=== PATIENT | female | born 1970 | race Caucasian/White ===

== ENCOUNTER → 2023-06-28 08:30 | Day surgery (SDC) | payer BC, SELFPAY ==
[2023-06-28 08:18] LABS: Glucose - Point of Care 285 mg/dl (70-99)
== END ==
LOC: GI 08:30
PROVIDERS: ATTENDING PHYSICIAN Internal Medicine Gastroenterology
DX: R12 Heartburn (principal); K22.70 Barrett's esophagus without dysplasia; K44.9 Diaphragmatic hernia without obstruction or gangrene; K31.89 Other diseases of stomach and duodenum; K21.00 Gastro-esophageal reflux disease with esophagitis, without bleeding
CPT/HCPCS: 43239; 88305; 82962

== ENCOUNTER 2023-09-05 11:51 | Emergency (ER) | payer BC, SELFPAY ==
[2023-09-05 11:55] VITALS: BP 151/106
[2023-09-05 12:11] LABS: % Basophils 0.5 % (0-2); % Immature Granulocytes 0.3 % (0-0.5); % Lymphocytes 28.6 % (20.5-51.1); % Monocytes 5.9 % (1.7-9.3); % Neutrophils 63.7 % (42.2-75.2); Absolute Eosinophils 0.1 10^3/uL (0-0.7); Absolute Lymphocytes 2.2 10^3/uL (1.2-3.4); Absolute Monocytes 0.5 10^3/uL (0.1-0.6); Absolute Neutrophils 4.9 10^3/uL (1.4-6.5); Hematocrit 41.5 % (37.0-47.0); Hemoglobin 14.2 g/dL (12.0-16.0); Mean Corp Hgb Conc. 34.2 g/dL (33.0-37.0); Mean Corpuscular Hgb 29.5 pg (27.0-31.0); Mean Corpuscular Volume 86.1 fL (81.0-99.0); Mean Platelet Volume 9.3 fL (7.4-10.4); Nucleated Red Blood Cells % 0 %; Platelet Count 356 10^3/uL (130-400); Red Blood Cell Count 4.82 10^6/uL (4.20-5.40); Red Cell Dist. Width 11.9 % (11.5-14.5); White Blood Cell Count 7.7 10^3/uL (4.8-10.8)
[2023-09-05 12:25] LABS: ALT (SGPT) 35 U/L (0-35); AST (SGOT) 24 U/L (14-36); Albumin 4.6 g/dl (3.5-5.0); Alkaline Phosphatase 79 U/L (38-126); Blood Urea Nitrogen 15 mg/dl (7-17); Calcium 10.5 mg/dl (8.4-10.2); Carbon Dioxide 27 mmol/L (22-30); Chloride 101 mmol/L (98-107); Glucose 277 mg/dl (70-99); Potassium 4.1 mmol/L (3.5-5.1); Sodium 137 mmol/L (135-145); Total Bilirubin 2.1 mg/dl (0.2-1.3); Total Protein 7.5 g/dl (6.3-8.2); eGFR > 60.00
--- NOTE | 2023-09-05 16:24 | ED.GENMED ---
History of Present Illness
General
Chief Complaint: Dizziness
Source: patient
Exam Limitations: none
Time Seen by Provider: 09/05/23 16:24
Travel History
Have you had any contact with someone who has COVID-19?: No
Do you have any symptoms of coronavirus? Fever > 100 degrees, chills, cough, shortness of breath, sore throat, loss of taste or smell, muscle aches, or headache?: No
History of Present Illness
History of Present Illness:
52-year-old female insulin-dependent diabetic presents complaining of dizziness that has been happening for about a week. She describes a spinning sensation when she changes position but denies any double vision blurry vision or loss of vision.
She also notes her sugars have been elevated recently. No chest pain or shortness of breath. No recent fever or congestion. No other complaints at this time
Past History
Past History
ED Past Medical History: None
Social History
Tobacco: Non-smoker
Personal:
Living: with family
Phy Exam
Physical Exam
Physical Exam:
General: Well-appearing female no acute respiratory distress
HEENT: Normocephalic pupils equal round reactive to light subtle nystagmus noted with extraocular motions TMs normal
Heart: Regular rate and rhythm
Lungs: Clear no wheeze
Neurologic: Ami-Hallpike increases dizziness to the right. Finger-nose intact [id number] intact normal gait no ataxia the dizziness is fatigable.
Extremities: No cyanosis
Course
Orders/Labs/Results
Orders:
Orders
09/05/23 11:58
Electrocardiogram (*1) Urgent
Reason for Study: Vertigo / Dizzy
EKG- Treatment ONCE
09/05/23 12:03
Complete Blood Count/With Diff Urgent
Comprehensive Metabolic Panel Urgent
Abnormal Lab Results
09/05/23
12:03
Creatinine 0.5 L mg/dL
(0.6-1.0)
Glucose 277 H mg/dl
(70-99)
Calcium 10.5 H mg/dl
(8.4-10.2)
Total Bilirubin 2.1 H mg/dl
(0.2-1.3)
09/05/23 12:03
09/05/23 12:03
Vital Signs
Initial and Last Documented VS:
Initial Vital Signs
Temp Pulse Resp BP Pulse Ox
98.8 F 81 16 151/106 98
09/05/23 11:55 09/05/23 11:55 09/05/23 11:55 09/05/23 11:55 09/05/23 11:55
Last Documented Vital Signs
Temp Pulse Resp BP Pulse Ox
98.8 F 81 16 151/106 98
09/05/23 11:55 09/05/23 11:55 09/05/23 11:55 09/05/23 11:55 09/05/23 11:55
MDM/Problems Addressed
Differential Diagnosis Includes:
Dizziness. Question anemia versus electrolyte abnormality versus vertigo. Objectively no signs consistent with CVA. This is reproducible and fatigable with position change. I was asked to see the patient in triage as she was about to leave. She
had to go home to her son. I do believe this is positional vertigo. They did blood work while waiting and her serum glucose is 277 but otherwise labs look well. She plans on following up with her family doctor regarding the glucose. Will
prescribe meclizine and and recommend vestibular therapy
*Critical Care Note
Total Time (30-74mins, 75-104mins- exclusive of procedures): Not Applicable
Update Note
Update Note:
Patient seen at request of nurse as she was about to leave. Patient did want to leave. Discussed role for imaging however did not order any imaging at this time. She was aware return precautions
ED Attending Note
-
Portions of this chart may have been created with voice recognition software.� Occasional wrong word or��sound alike� substitutions may have occurred due to the inherent limitations of voice recognition software.
Discharge Plan
Departure
Patient Disposition: Home (Routine Discharge)
Date of Disposition: 09/05/23
Time of Disposition: 16:27
Patient with high blood pressure during this ER visit?: No
Discharge Problem:
Vertigo
Instructions: Vertigo (a Type of Dizziness) (DC)
Prescriptions:
New
meclizine 25 mg tablet
25 mg PO TID PRN (Reason: dizziness) Qty: 10 0RF
No Action
vit-iron fum-folic ac [ Vitamin with Minerals] 1 EACH tablet
1 ea PO DAILY
Activity Restrictions/Additional Instructions:
Use meclizine up to 3 times a day if needed for dizziness. Stay hydrated. Please follow-up with your family doctor for further evaluation. Return here for any worsening symptoms. Consider vestibular therapy as a treatment for your vertigo as well
Discharge Date and Time
Print Language: ITALIAN
== END 2023-09-05 17:02 | disposition home or self-care (01) ==
LOC: EMR 11:51
PROVIDERS: Emergency Medicine; EMERGENCY PHYSICIAN Emergency Medicine; FAMILY PHYSICIAN Nurse Practitioner Family
DX: R42 Dizziness and giddiness (principal); E11.9 Type 2 diabetes mellitus without complications; Z79.4 Long term (current) use of insulin
CPT/HCPCS: 99284; 80053; 85025; 93005

== ENCOUNTER → 2024-05-08 14:48 | Outpatient (REF) | payer BC, SELFPAY | LOC: HWWDC 14:48 | PROVIDERS: ATTENDING PHYSICIAN Nurse Practitioner Family | DX: Z12.31 Encounter for screening mammogram for malignant neoplasm of breast (principal) | CPT/HCPCS: 77063; 77067 ==

== ENCOUNTER → 2024-06-08 12:33 | Outpatient (REF) | payer BC, SELFPAY ==
--- NOTE | 2024-06-09 09:11 | PN.DIAED02 ---
Referral
DSME Class Series Code: [id number]
Referred For: Diabetes Self-Management Training, Medical Nutrition Therapy, Self-Blood Glucose Monitoring, Long-Term Complication Instruction, [place]ute Complication Instruction, Continuous Glucose Monitoring, Medication management, Insulin
Instruction, Care Coordination, Disease Management
PHI Release Authorization Form Signed: Yes
Patient Problems:
Current Active Problems
Problem Status Onset
Type 2 diabetes mellitus without complications Unknown
Demographic
(1) Type 2 diabetes mellitus without complications
Status: Chronic Onset Date: Unknown Code(s): E11.9 - Type 2 diabetes mellitus without complications
Patient's primary language-: Chinese
Education: College degree
Occupation: Professional
Hours Worked/Week: 20-40
- Social
Primary Support Person: Self
Primary Care Takers: Self
Living Arrangements: Self & spouse, Family
- Learning Methods
Preferred Method: Reading, Computer, Lecture/audio, Hands-on demonstration, Video, Group discussion
Barriers to Learning: None
Glycemic Control
- Blood Glucose Monitoring Assessment
Date: 06/09/24 (FBS 113 06/09/2024)
Blood glucose monitoring at home: Yes
Monitor Brands: Freestyle
Frequency: 2x per day
Time: fasting, bedtime (FBS 113, BEFORE BED 135)
- Hyperglycemia Assessment
Experiences Hyperglycemia: Yes (FREQUENT THIRST)
Frequency: 1-3x per week
- Hypoglycemia Assessment
Patient carries glucose source: No
Patient experiences hypoglycemia: No
- Blood Glucose Monitoring Results
Source: lab (05/28/2024 FBS 213)
- Hemoglobin A1c
Date: 05/28/24
A1C Percentage (%): 12.8
Medical History of Diabetes
Family Diabetes History: Father, Sibling
Previous Diabetes Education: No
Previous visit with Dietitian: No
Complications/Comorbidity/Specialist: Gastrointestinal disease (GERD: Omeprazole Del Rls 20 mg QD, Braxton's Esoph - no meds), Hypertension (Lisinopril 2.5 mg QD), Hyperlipidemia ([place] 3 Acid Ethyl Esters 1 GM- 2 tablets QD, Atorvastatin 40 mg QD),
Liver disease (no meds), Metabolic (T2D: Mounjaro 2.5 mg QW, Metformin 2000 mg HS, Tresiba 30 u QD HS)
Current Home Medication
- Insulin Management
Patient adjusts own insulin dosages: No
Patient has access to glucagon: No
- Insulin Types
Tresiba
Insulin Injection Site: Abdomen
Administration Type: FlexPen
Measures
- Anthropometrics
Height: 5 ft 3 in
Actual Weight: 154 lb 6.4 oz
- Blood Pressure / Pulse
Blood pressure: 113/77
Pulse: 88
- Diabetes Management
Medical Management for Diabetes: Complete physical exam (05/28/2024), Dental exam (06/09/2024), Dilated eye exam (03/2024), Monofilament testing (05/28/2024)
Self-Care
- Tobacco Usage
Do you now, or have you ever smoked?: Never smoked
- Alcohol & Drugs Usage
Amount/day: Social Occasions
- Meals & Dining
Meals & Dining: Patient skips meals: Yes, Food Intolerance / Allergy: Yes (sulpha allergy), Cultural / Judaism Dietary Needs: No
Primary Food Director Of Marketing Communications: Self
Primary Radiological Equipment Specialist: Self
Dining Out Frequency: 1-3x per week
- Physical Activity
Physical Limitation: No
Patient participates in physical Activity: No
- Self Foot-Care
Foot Problems: None
- Patient-Self Assessment
Diabetes Knowledge: Fair
Feelings About Diabetes: Denial
General Health: Fair
Importance of Health: Extremely
Stress Level: High
Diabetes Interferes With:: Nothing
Barriers to Diabetes Management: Lack of knowledge
Depression Survey Score: 3
- Diabetes Identification
Carries Diabetes Identification: Yes (keeps on ambrocio chain)
Diabetes Identification Information Provided: Yes
Care Plan
- Education Needs
Patient Education Needs: Diabetes disease process, Chronic complications, Acute complications, Medication, Monitoring, Physical activity, Psychosocial Adjustment, Nutritional management, Goal setting & problem solving
Recommended Diabetes Training Program based on assessment: Outpatient Diabetes Education Program
- Plan of Care
Plan of Care:
Met with patient for initial consultation for DSMES program. Reviewed HbA1c meaning, complications, preventive care, monitoring schedule and pre/postprandial glucose goals. Educated on signs and symptoms of hyperglycemia, treat with water and
exercise. Educated on signs and symptoms of hypoglycemia, hypoglycemia protocol, and encouraged member to discuss any hypoglycemia with steam station supervisor. Discuss Mounjaro mechanism of action and side effects. Educated on proper insulin injection
storage and injection technique.
--- NOTE | 2024-06-09 09:58 | PN.DIAED04 ---
Education Record
- Education Record
Class Attended: Other (Initial consultation)
DSME Class Series Code: [id number]
Instructor: Registered Nurse (Laney Chaudhari RN)
Pre-Program Knowledge: Needs review / Assistance
Pre-Test Score (%): 73
Goals
- Goal 1
Being Active: Exercise 15 minutes-3 times per week
Goals To Be Evaluated: Exercise 15 mins-3x/week
- Goal 2
Healthy Eating: Patient will be able to plan a meal, Make better food choices, Follow meal plan, Reduce portion sizes
Goals To Be Evaluated: Be able to plan a meal. Make better food choices. Follow meal plan. Reduce portion sizes
- Goal 3
Monitoring: Check blood sugar 4x daily-b4 breakfast/b4 lunch/b4 dinner/at bedtime, Monitor more often (will begin checking 2 hours post prandial)
Goals To Be Evaluated: Check blood sugar 4x/day. Monitor more often
--- NOTE | 2024-06-10 15:41 | PN.DIAED14 ---
This is to notify you that your patient with diabetes, ERNESTINE HOLLIDAY ( 1970), has enrolled in our diabetes self-management classes that are being held at [facility].
These classes will include an introduction to diabetes, diet, medication, exercise and prevention of complications. At the end of our class series, you will receive a report of your patient's participation and progress for your records.
Please contact me at the Diabetes Center, , if there is any particular information regarding your patient that might be helpful to me.
Sincerely,
George WEIR-KIMBERLY,[facility]
--- NOTE | 2024-06-10 15:41 | PN.DIAED04 ---
Education Record
- Education Record
Class Attended: Class 1
DSME Class Series Code: [id number]
Instructor: Nurse Practitioner (DESTIN Melendez)
Class Curriculum:
Outpatient Diabetes Education Program:
Class 1 (120 minutes)
Describe the diabetes disease process and treatment options
Diabetes management
Develop personal strategies to promote health and behavior change
Integrate psychosocial adjustment for daily living
Monitor blood glucose and other parameters. Interpret and use the results for self-management decision making
Prevent, detect, and treat acute complications
Class Length (mins): 120
Post-Class 1 Test Score (%): 100
== END ==
LOC: DES 12:33
PROVIDERS: ATTENDING PHYSICIAN Nurse Practitioner Family
DX: E11.65 Type 2 diabetes mellitus with hyperglycemia (principal)
CPT/HCPCS: 99078

== ENCOUNTER → 2024-06-15 10:21 | Outpatient (REF) | payer BC, SELFPAY ==
--- NOTE | 2024-06-16 15:50 | PN.DIAED04 ---
Education Record
- Education Record
Class Attended: Class 2
DSME Class Series Code: [id number]
Instructor: Registered Dietitian (Meenakshi Will, RD, LDN, CDE)
Class Curriculum:
Outpatient Diabetes Education Program:
Class 2 (120 minutes)
Incorporate nutritional management into lifestyle
Understanding nutritional value
Understanding carbohydrate counting
Class Length (mins): 120
== END ==
LOC: DES 10:21
PROVIDERS: ATTENDING PHYSICIAN Nurse Practitioner Family
DX: E11.65 Type 2 diabetes mellitus with hyperglycemia (principal)
CPT/HCPCS: 99078

== ENCOUNTER → 2024-06-22 08:30 | Outpatient (REF) | payer BC, SELFPAY ==
--- NOTE | 2024-06-23 10:17 | PN.DIAED04 ---
Education Record
- Education Record
Class Attended: Class 3
DSME Class Series Code: [id number]
Instructor: Registered Dietitian (Meenakshi Will, RD, LDN, CDE)
Class Curriculum:
Outpatient Diabetes Education Program:
Class 3 (120 minutes)
Incorporate nutritional management into lifestyle
Class Length (mins): 120
Post-Class 2 & 3 Test Score (%): 81
== END ==
LOC: DES 08:30
PROVIDERS: ATTENDING PHYSICIAN Nurse Practitioner Family
DX: E11.65 Type 2 diabetes mellitus with hyperglycemia (principal)
CPT/HCPCS: 99078

== ENCOUNTER → 2024-06-29 09:19 | Outpatient (REF) | payer BC, SELFPAY ==
--- NOTE | 2024-06-30 15:00 | PN.DIAED04 ---
Education Record
- Education Record
Class Attended: Class 4
DSME Class Series Code: [id number]
Instructor: Nurse Practitioner (Mary Beth Sinha NP)
Class Curriculum:
Outpatient Diabetes Education Program:
Class 4 (120 minutes)
Develop personal strategies to promote health and behavior change
Incorporate physical activity into lifestyle
Utilize medications safety for maximum therapeutic effectiveness
Understand different medication/insulin mechanism of action
Preparing for travel
Class Length (mins): 120
Post-Class 4 Test Score (%): 93
== END ==
LOC: DES 09:19
PROVIDERS: ATTENDING PHYSICIAN Nurse Practitioner Family
DX: E11.65 Type 2 diabetes mellitus with hyperglycemia (principal)
CPT/HCPCS: 99078

== ENCOUNTER → 2024-07-06 12:32 | Outpatient (REF) | payer BC, SELFPAY ==
--- NOTE | 2024-07-09 10:28 | PN.DIAED04 ---
Education Record
- Education Record
Class Attended: Class 5
DSME Class Series Code: [id number]
Instructor: Nurse Practitioner (DESTIN Melendez)
Class Curriculum:
Outpatient Diabetes Education Program:
Class 5 (120 minutes)
Prevent, detect, and treat acute complications
Prevent, detect, and treat chronic complications through risk reduction
Develop personal strategies to address psychosocial issues and concerns
Development of diabetes self-management support plan
Letter to physician with DSMS plan attached sent
Class Length (mins): 120
Post-Program Knowledge: Demonstrates competency
Post-Test Score (%): 90
Post-Program Assessment
- Post-Program Assessment
Actual Weight: 151 lb
Blood pressure: 143/87
Post-Program Depression Survey Score: 2
Reviewing Previous Goals?: Yes
Pre-Program Depression Survey Score: 3
- Goals 1 Evaluation
Goals To Be Evaluated: Exercise 15 mins-3x/week
- Goals 2 Evaluation
Goals To Be Evaluated: Be able to plan a meal. Make better food choices. Follow meal plan. Reduce portion sizes
- Goals 3 Evaluation
Goals To Be Evaluated: Check blood sugar 4x/day. Monitor more often
--- NOTE | 2024-07-09 10:28 | PN.DIAED16 ---
This is to notify you that your patient with diabetes, ERNESTINE HOLLIDAY ( 1970), has attended the entire series of Diabetes Self-Management Education Classes.
Class 1 (120 minutes): Diabetes Overview - monitoring, stress/psychosocial adjustment, support, goal setting
Class 2 (120 minutes): Meal Planning - serving sizes, menu plans
Class 3 (120 minutes): Introduction to Carbohydrate Counting, Analyzing Food Labels
Class 4 (120 minutes): Medication, Exercise and Activity
Class 5 (120 minutes): Sick Day Management, Strategies to Reduce Complications, Problem Solving, Resources
The following behavioral goals were identified:
Exercise 15 mins-3x/week
Be able to plan a meal
Make better food choices
Follow meal plan
Reduce portion sizes
Check blood sugar 4x/day
Monitor more often
A follow-up call will be made within three to six months to evaluate attainment of these goals and to check post-program Hemoglobin A1c and overall progress. All class participants are encouraged to contact me if I can be any further assistance in
learning how to manage their diabetes.
Sincerely,
George WEIR-KIMBERLY, [facility]
== END ==
LOC: DES 12:32
PROVIDERS: ATTENDING PHYSICIAN Nurse Practitioner Family
DX: E11.65 Type 2 diabetes mellitus with hyperglycemia (principal)
CPT/HCPCS: 99078

== ENCOUNTER → 2024-08-18 09:08 | Outpatient (REF) | payer BC, SELFPAY ==
[2024-08-18 11:30] LABS: ALT (SGPT) 26 U/L (0-35); AST (SGOT) 23 U/L (14-36); Albumin 4.4 g/dl (3.5-5.0); Alkaline Phosphatase 44 U/L (38-126); Blood Urea Nitrogen 11 mg/dl (7-17); Calcium 10.6 mg/dl (8.4-10.2); Carbon Dioxide 34 mmol/L (22-30); Chloride 103 mmol/L (98-107); Direct Bilirubin 0.2 mg/dl (0.0-0.4); Glucose 85 mg/dl (70-99); Lipase 151 U/L (23-300); Sodium 144 mmol/L (135-145); Total Bilirubin 3.7 mg/dl (0.2-1.3); Total Protein 7.2 g/dl (6.3-8.2); eGFR > 60.00
== END ==
LOC: RAD 09:08
PROVIDERS: ATTENDING PHYSICIAN Nurse Practitioner Family
DX: E80.6 Other disorders of bilirubin metabolism (principal)
CPT/HCPCS: 36415; 76700; 80053; 82248; 83690